=== PATIENT | male | born 1955 | race Caucasian/White ===

== ENCOUNTER → 2017-06-17 | Outpatient (CLI) | payer OTHER | END | disposition home or self-care (01) | LOC: CVU 06:56 | PROVIDERS: ATTEND Family Medicine | DX: I10 Essential (primary) hypertension (principal); E11.22 Type 2 diabetes mellitus with diabetic chronic kidney disease; E78.5 Hyperlipidemia, unspecified | CPT/HCPCS: 93978 ==

== ENCOUNTER → 2019-09-20 | Outpatient (CLI) | payer MEDICARE ==
[2019-09-20 13:06] LABS: MICROSCOPIC NOT IND
[2019-09-20 13:29] LABS: CHLORIDE 104 mmol/L (98-107)
[2019-09-20 13:32] LABS: BASOPHILS # (AUTO) 0.05 x10^3/uL (0-0.1); BASOPHILS % (AUTO) 1 % (0-1); EOSINOPHILS # (AUTO) 0.32 x10^3/uL (0-0.4); EOSINOPHILS % (AUTO) 4 % (1-7); LYMPHOCYTES # (AUTO) 1.72 x10^3/uL (1-3.4); LYMPHOCYTES % (AUTO) 24 % (22-44); MD NO; MEAN CORPUSCULAR HEMOGLOBIN 29.5 pg (27.5-34.5); MEAN CORPUSCULAR HGB CONC 33.1 g/dL (33.2-36.2); MEAN CORPUSCULAR VOLUME 89.3 fL (81-97); MEAN PLATELET VOLUME 9.7 fL (7.4-10.4); MONOCYTES # (AUTO) 0.78 x10^3/uL (0.2-0.8); MONOCYTES % (AUTO) 11 % (2-9); NEUTROPHILS # (AUTO) 4.42 x10^3/uL (1.8-6.8); NEUTROPHILS % (AUTO) 61 % (42-75); PLATELET COUNT 195 x10^3/uL (130-400); RED BLOOD COUNT 4.96 x10^6/uL (4.38-5.82); RED CELL DISTRIBUTION WIDTH 13.3 % (9.4-14.8)
[2019-09-20 13:35] LABS: ALANINE AMINOTRANSFERASE 21 U/L (12-78); ALBUMIN 3.7 g/dL (3.4-5.0); ALKALINE PHOSPHATASE 51 U/L (45-117); ANION GAP 6 mmol/L (5-15); BILIRUBIN,TOTAL 0.5 mg/dL (0.2-1.0); CHOL/HDL RATIO 7.2; CHOLESTEROL, TOTAL 194 mg/dL (140-239); CREATININE 1.85 mg/dL (0.7-1.3); HDL CHOL % 14 % (26-37); HDL CHOLESTEROL (DIRECT) 27 mg/dL (40-60); LDL CHOLESTEROL,CALCULATED 125 mg/dL (54-169); LDL/HDL RATIO 4.6 (0.5-3.0); TOTAL PROTEIN 7.5 g/dL (6.4-8.2); TRIGLYCERIDES 209 mg/dL (50-200); VLDL CHOLESTEROL 42 mg/dL (0-25)
== END | disposition home or self-care (01) ==
LOC: CFH 09:59
PROVIDERS: ATTEND Family Medicine
DX: E11.22 Type 2 diabetes mellitus with diabetic chronic kidney disease (principal); I12.9 Hypertensive chronic kidney disease with stage 1 through stage 4 chronic kidney disease, or unspecified chronic kidney disease; N18.9 Chronic kidney disease, unspecified; E78.5 Hyperlipidemia, unspecified; E55.9 Vitamin D deficiency, unspecified
CPT/HCPCS: 36415; 80053; 80061; 81003; 82043; 82306; 83036; 85025

== ENCOUNTER 2020-04-21 22:50 | Emergency (ER) | payer MEDICARE ==
[~2020-04-21] VITALS: Ht 180.3 cm; Wt 128.0 kg
[2020-04-21] MEDS ORDERED: LIDOCAINE-MPF 1%, 5ML ONE (23:59)
[2020-04-22 00:01] VITALS: BP 149/87
--- NOTE | 2020-04-22 00:03 | NUR ---
PT RESTING ON [facility]. MONITORING IN PLACE. ERP IN ROOM FOR SUTURING.
[2020-04-22] MEDS ORDERED: NEOSPORIN OINT. PKT 1 PACKET ONE (00:14)
== END 2020-04-22 00:47 | disposition home or self-care (01) ==
LOC: ED 23:09
DX: S01.21XA Laceration without foreign body of nose, initial encounter (principal); S09.90XA Unspecified injury of head, initial encounter; R94.31 Abnormal electrocardiogram [ECG] [EKG]; W01.0XXA Fall on same level from slipping, tripping and stumbling without subsequent striking against object, initial encounter; Y93.89 Activity, other specified; Y92.89 Other specified places as the place of occurrence of the external cause; Y99.8 Other external cause status
CPT/HCPCS: 12051; 93005; 99284

== ENCOUNTER 2020-04-29 09:20 | Emergency (ER) | payer MEDICARE ==
[~2020-04-29] VITALS: Ht 182.9 cm; Wt 125.0 kg
[2020-04-29 09:48] VITALS: BP 90/49
[2020-04-29] MEDS ORDERED: NEOSPORIN OINT. PKT 1 PACKET ONE (09:54)
--- NOTE | 2020-04-29 09:57 | NUR ---
Patient given discharge instructions and they have confirmed that they understand the instructions. Patient ambulatory with steady gait.
[2020-04-29] MEDS ORDERED: LAMO25TA9 PO (17:01)
[2020-04-29] MEDS ORDERED: ERGO500018 PO (17:01)
[2020-04-29] MEDS ORDERED: METF10007 PO (17:01)
[2020-04-29] MEDS ORDERED: METO25TA4 PO (17:01)
[2020-04-29] MEDS ORDERED: OXYC10TA6 PO (17:01)
== END 2020-04-29 11:02 | disposition home or self-care (01) ==
LOC: ED 09:45
DX: S01.21XD Laceration without foreign body of nose, subsequent encounter (principal); X58.XXXD Exposure to other specified factors, subsequent encounter
CPT/HCPCS: 99281

== ENCOUNTER → 2020-04-29 | Emergency (ER) | payer MEDICARE ==
[~2020-04-29] VITALS: Ht 182.9 cm; Wt 123.2 kg
[~2020-04-29] MED LIST: ERGO500018 PO; LAMO25TA9 PO; METF10007 PO; METO25TA4 PO; OXYC10TA6 PO
--- NOTE | 2020-04-29 17:02 | NUR ---
PT REPORTS BLOOD SUGAR LEVELS HAVE BEEN FLUCTUATING FOR THE LAST 2 WEEKS, HAD RECENT CHANGES IN MEDS BY HIS PCP. ALSO REPORTS GLF 1 WEEK AGO AND TREMORS IN LEGS.
[2020-04-29 17:32] LABS: MICROSCOPIC NOT IND
[2020-04-29 17:55] LABS: BASOPHILS # (AUTO) 0.01 x10^3/uL (0-0.1); BASOPHILS % (AUTO) 0 % (0-1); EOSINOPHILS # (AUTO) 0.21 x10^3/uL (0-0.4); EOSINOPHILS % (AUTO) 3 % (1-7); LYMPHOCYTES # (AUTO) 0.97 x10^3/uL (1-3.4); LYMPHOCYTES % (AUTO) 12 % (22-44); MD NO; MEAN CORPUSCULAR HGB CONC 33.3 g/dL (33.2-36.2); MEAN CORPUSCULAR VOLUME 90.1 fL (81-97); MONOCYTES # (AUTO) 0.58 x10^3/uL (0.2-0.8); MONOCYTES % (AUTO) 7 % (2-9); NEUTROPHILS # (AUTO) 6.45 x10^3/uL (1.8-6.8); NEUTROPHILS % (AUTO) 78 % (42-75); PLATELET COUNT 207 x10^3/uL (130-400); RED BLOOD COUNT 4.03 x10^6/uL (4.38-5.82); RED CELL DISTRIBUTION WIDTH 13.4 % (9.4-14.8)
[2020-04-29 18:05] LABS: ALANINE AMINOTRANSFERASE 32 U/L (12-78); ALBUMIN 3.6 g/dL (3.4-5.0); ANION GAP 6 mmol/L (5-15); CALCIUM 9.3 mg/dL (8.5-10.1); CHLORIDE 107 mmol/L (98-107); CREATININE 1.37 mg/dL (0.7-1.3)
[2020-04-29 18:10] LABS: ALKALINE PHOSPHATASE 51 U/L (45-117); BILIRUBIN,TOTAL 0.3 mg/dL (0.2-1.0); TROPONIN I < 0.015 ng/mL (0.000-0.045)
[2020-04-29 18:18] VITALS: BP 129/42
--- NOTE | 2020-04-29 18:41 | NUR ---
FSBS 90
== END ==
LOC: ED 17:44
DX: G47.00 Insomnia, unspecified (principal); I10 Essential (primary) hypertension; E11.9 Type 2 diabetes mellitus without complications
CPT/HCPCS: 36415; 80053; 81003; 82962; 83735; 84443; 84484; 85025; 99283

== ENCOUNTER → 2020-05-16 | Outpatient (CLI) | payer MEDICARE | END | disposition home or self-care (01) | LOC: RAD 14:40 | PROVIDERS: ATTEND Nurse Practitioner Primary Care | DX: R60.9 Edema, unspecified (principal) | CPT/HCPCS: 36415; 83880; 93970 ==

== ENCOUNTER 2020-06-06 12:17 | Day surgery (SDC) | payer MEDICARE ==
[~2020-06-06] VITALS: Ht 180.3 cm; Wt 117.0 kg
[2020-06-06 13:17] VITALS: BP 124/74
[2020-06-06] MEDS ORDERED: SODIUM CHLORIDE 0.9% 1,000 ML IV SCH (13:30)
[2020-06-06] MEDS ORDERED: FLUO20CA23 PO (13:58)
[2020-06-06] MEDS ORDERED: DIAZ5TAB4 PO (13:58)
[2020-06-06] MEDS ORDERED: GABA600T7 PO (13:58)
[2020-06-06] MEDS ORDERED: SEMA0.25 SQ (13:58)
[2020-06-06] MEDS ORDERED: TRAZ50TA66 PO (13:58)
[2020-06-06] MEDS ORDERED: ENAL20TA9 PO (13:58)
[2020-06-06] MEDS ORDERED: OMNIPAQUE 180 MG/ML, 20ML VIAL ONE (15:08)
== END 2020-06-06 15:45 | disposition home or self-care (01) ==
LOC: OUT 12:17
PROVIDERS: ATTEND Neurological Surgery
DX: M48.062 Spinal stenosis, lumbar region with neurogenic claudication (principal); M48.02 Spinal stenosis, cervical region; I10 Essential (primary) hypertension; E78.00 Pure hypercholesterolemia, unspecified; F41.9 Anxiety disorder, unspecified; F32.9 Major depressive disorder, single episode, unspecified; G47.00 Insomnia, unspecified; E11.40 Type 2 diabetes mellitus with diabetic neuropathy, unspecified; M19.90 Unspecified osteoarthritis, unspecified site; Z95.0 Presence of cardiac pacemaker; Z79.01 Long term (current) use of anticoagulants; Z79.82 Long term (current) use of aspirin; Z79.899 Other long term (current) drug therapy; Z72.89 Other problems related to lifestyle; Z83.3 Family history of diabetes mellitus
CPT/HCPCS: 62328; 72126; 72129; 72132; Q9965; 62270

== ENCOUNTER → 2020-06-14 | Outpatient (CLI) | payer MEDICARE ==
[~2020-06-14] MED LIST changes: +DIAZ5TAB4 PO; +ENAL20TA9 PO; +FLUO20CA23 PO; +GABA600T7 PO; +SEMA0.25 SQ; +TRAZ50TA66 PO
== END | disposition home or self-care (01) ==
LOC: CVU 12:18
PROVIDERS: ATTEND Physician Assistant Medical
DX: Z01.810 Encounter for preprocedural cardiovascular examination (principal); E11.9 Type 2 diabetes mellitus without complications; E78.5 Hyperlipidemia, unspecified; I35.8 Other nonrheumatic aortic valve disorders; I11.9 Hypertensive heart disease without heart failure; Z95.0 Presence of cardiac pacemaker
CPT/HCPCS: 93306

== ENCOUNTER → 2020-06-15 | Outpatient (CLI) | payer MEDICARE ==
[~2020-06-15] MED LIST changes: +AMINOPHYLLINE 25 MG/ML, 10ML ONE; +REGADENOSON 0.4 MG/5 ML SYRINGE ONE
== END | disposition home or self-care (01) ==
LOC: CFH 08:10
PROVIDERS: ATTEND Physician Assistant Medical
DX: Z01.818 Encounter for other preprocedural examination (principal); I21.29 ST elevation (STEMI) myocardial infarction involving other sites; R06.02 Shortness of breath
CPT/HCPCS: 78452; 93017; A9502; J0280; J2785

== ENCOUNTER → 2020-06-28 | Outpatient (CLI) | payer MEDICARE ==
[~2020-06-28] MED LIST changes: -AMINOPHYLLINE 25 MG/ML, 10ML ONE; +FLUO40CA2 PO; +GABA300C PO; -REGADENOSON 0.4 MG/5 ML SYRINGE ONE; +SEMA0.25 INJ; +SIMV40TA20 PO
[2020-06-28 09:30] LABS: BASOPHILS % (AUTO) 1 % (0-1); EOSINOPHILS % (AUTO) 4 % (1-7); LYMPHOCYTES % (AUTO) 13 % (22-44); MEAN CORPUSCULAR HEMOGLOBIN 28.7 pg (27.5-34.5); MEAN CORPUSCULAR HGB CONC 32.4 g/dL (33.2-36.2); MEAN PLATELET VOLUME 9.3 fL (7.4-10.4); MONOCYTES % (AUTO) 10 % (2-9); NEUTROPHILS % (AUTO) 73 % (42-75); PLATELET COUNT 207 x10^3/uL (130-400); RED CELL DISTRIBUTION WIDTH 13.3 % (9.4-14.8)
[2020-06-28 09:38] LABS: INTERNATIONAL NORMALIZED RATIO 1.04 (0.93-1.1)
[2020-06-28 09:39] LABS: MD NO
[2020-06-28 09:40] LABS: ALANINE AMINOTRANSFERASE 35 U/L (12-78); ANION GAP 4 mmol/L (5-15); CHLORIDE 102 mmol/L (98-107); CREATININE 1.56 mg/dL (0.7-1.3)
[2020-06-28 09:42] LABS: ALKALINE PHOSPHATASE 54 U/L (45-117); BILIRUBIN,TOTAL 0.5 mg/dL (0.2-1.0); TOTAL PROTEIN 7.7 g/dL (6.4-8.2)
== END | disposition home or self-care (01) ==
LOC: STAR 07:47
PROVIDERS: ATTEND Neurological Surgery
DX: Z01.818 Encounter for other preprocedural examination (principal); M47.12 Other spondylosis with myelopathy, cervical region; M25.78 Osteophyte, vertebrae; Z20.828 Contact with and (suspected) exposure to other viral communicable diseases
CPT/HCPCS: 36415; 71046; 80053; 83036; 85025; 85610; 85730; 87635